=== PATIENT | female | born 1990 | race Caucasian/White ===

== ENCOUNTER → 2019-05-23 | Outpatient (REF) | payer OTHER ==
[2019-05-23 15:48] LABS: CHLAMYDIA DNA AMPLIFICATION NEGATIVE (NEGATIVE); GC DNA AMPLIFICATION NEGATIVE (NEGATIVE)
== END ==
LOC: M LAB REF 13:24
PROVIDERS: ATTEND Advanced Practice Midwife
DX: Z11.3 Encounter for screening for infections with a predominantly sexual mode of transmission (principal)
CPT/HCPCS: 87491; 87591; G0123

== ENCOUNTER → 2019-06-26 | Outpatient (REF) | payer OTHER | LOC: M LAB REF 16:52 | PROVIDERS: ATTEND Physician Assistant | DX: R30.0 Dysuria (principal) ==

== ENCOUNTER → 2019-10-03 | Outpatient (REF) | payer OTHER | LOC: M LAB REF 16:09 | PROVIDERS: ATTEND Nurse Practitioner | DX: L08.9 Local infection of the skin and subcutaneous tissue, unspecified (principal) ==

== ENCOUNTER 2020-02-26 08:30 | Outpatient (CLI) | payer OTHER ==
[~2020-02-26] VITALS: Ht 175.3 cm; Wt 100.0 kg
[2020-02-26 08:46] VITALS: BP 131/60
[2020-02-26] MEDS ORDERED: FERRIC CARBOXYMALTOSE INJ 750 MG in NS 250 ML IV ONE (09:15)
[2020-02-26] MEDS ORDERED: MAXA10TA14 PO (09:19)
[2020-02-26] MEDS ORDERED: VITA250C5 PO (09:19)
[2020-02-26] MEDS ORDERED: MULT-90 PO (09:19)
[2020-02-26] MEDS ORDERED: BUPR150T3 PO (09:19)
[2020-02-26] MEDS ORDERED: VITA5000 PO (09:19)
[2020-02-26 10:55] VITALS: BP 134/83
== END 2020-02-26 10:55 | disposition home or self-care (01) ==
LOC: M INFU 08:30
PROVIDERS: ATTEND Physician Assistant
DX: D64.9 Anemia, unspecified (principal)
CPT/HCPCS: 96365; J1439

== ENCOUNTER 2020-03-04 12:26 | Outpatient (CLI) | payer OTHER ==
[~2020-03-04] VITALS: Ht 175.3 cm; Wt 100.0 kg
[~2020-03-04 12:26] MED LIST: BUPR150T3 PO; MAXA10TA14 PO; MULT-90 PO; VITA250C5 PO; VITA5000 PO
[2020-03-04] MEDS ORDERED: FERRIC CARBOXYMALTOSE INJ 750 MG in NS 250 ML IV ONE (12:45)
[2020-03-04 14:18] VITALS: BP 116/55
== END 2020-03-04 14:15 | disposition home or self-care (01) ==
LOC: M INFU 12:26
PROVIDERS: ATTEND Physician Assistant
DX: D64.9 Anemia, unspecified (principal)
CPT/HCPCS: 96365; J1439

== ENCOUNTER 2020-07-13 18:53 | Emergency (ER) | payer OTHER ==
[~2020-07-13] VITALS: Ht 175.3 cm; Wt 105.8 kg
[2020-07-13 21:02] LABS: BASO # 0.1 10^3/uL (0.0-0.2); BASO % 0.5 % (0.0-1.0); EOS # 0.2 10^3/uL (0.0-0.5); EOS % 1.5 % (0.0-3.0); HEMATOCRIT 38.7 % (36.0-47.0); HEMOGLOBIN 12.1 g/dl (12.0-15.5); LYMPH # 2.7 10^3/uL (1.5-5.0); LYMPH % 24.6 % (24.0-44.0); MEAN CORPUSCULAR HGB CONC 31.3 g/dl (32.0-36.5); MEAN CORPUSCULAR VOLUME 83.2 fl (80.0-96.0); MONO # 0.5 10^3/uL (0.0-0.8); MONO % 4.1 % (0.0-5.0); NEUTROPHILS # 7.7 10^3/uL (1.5-8.5); NEUTROPHILS % 68.9 % (36.0-66.0); PLATELET COUNT, AUTOMATED 351 10^3/uL (150-450); RED BLOOD COUNT 4.65 10^6/uL (4.00-5.40); WHITE BLOOD COUNT 11.1 10^3/uL (4.0-10.0)
[2020-07-13 21:16] LABS: INR 1.07; PROTHROMBIN TIME 14.1 SECONDS (12.5-14.3)
[2020-07-13 21:17] LABS: PARTIAL THROMBOPLASTIN TIME 30.6 SECONDS (24.2-38.5)
[2020-07-13 21:19] LABS: HCG, SERUM QUALITATIVE NEGATIVE (NEGATIVE)
[2020-07-13 21:59] LABS: ALBUMIN 4.4 GM/DL (3.2-5.2); ALT/SGPT 22 U/L (12-78); BILIRUBIN,DIRECT < 0.1 MG/DL (0.0-0.2); BILIRUBIN,TOTAL 0.5 MG/DL (0.2-1.0); BLOOD UREA NITROGEN 17 MG/DL (7-18); CALCIUM LEVEL 9.7 MG/DL (8.5-10.1); CARBON DIOXIDE LEVEL 26 MEQ/L (21-32); CHLORIDE LEVEL 106 MEQ/L (98-107); CK-MB VALUE MASS < 1.0 NG/ML (<3.6); CPK CREATINE PHOSPHOKINASE 108 U/L (26-192); CREATININE FOR GFR 1.22 MG/DL (0.55-1.30); GLOMERULAR FILTRATION RATE 55.1 (>60); GLUCOSE, FASTING 99 MG/DL (70-100); LIPASE 98 U/L (73-393); MB/CK RELATIVE INDEX 0.93 (< OR =4); POTASSIUM SERUM 4.2 MEQ/L (3.5-5.1); SODIUM LEVEL 140 MEQ/L (136-145); TROPONIN I < 0.02 NG/ML (< 0.10)
[2020-07-13] MEDS ORDERED: ISOVUE-370 76% 100ML VIAL As Ordered ONE (22:12)
--- NOTE | 2020-07-13 22:42 | REPVR ---
PROCEDURE INFORMATION: Exam: CT Angiography Chest With Contrast Exam date and time: 07/13/2020 10:30 PM Age: 29 years old Clinical indication: Chest pain; Additional info: Pleuritic chest pain TECHNIQUE: Imaging protocol: Computed tomographic angiography of the chest with intravenous contrast. 3D rendering (Not supervised by radiologist): MIP and/or 3D reconstructed images were created by the technologist. Radiation optimization: All CT scans at this facility use at least one of these dose optimization techniques: automated exposure control; mA and/or kV adjustment per patient size (includes targeted exams where dose is matched to clinical indication); or iterative reconstruction. Contrast material: ISO 370; Contrast volume: 75 ml; Contrast route: INTRAVENOUS (IV); COMPARISON: No relevant prior studies available. FINDINGS: Pulmonary arteries: No evidence of pulmonary artery emboli. Aorta: No evidence of thoracic aortic aneurysm or dissection. Lungs: Unremarkable. No consolidation. No masses. Pleural space: Unremarkable. No pneumothorax. No pleural effusion. Heart: Unremarkable. No cardiomegaly. No pericardial effusion. Mediastinal space: There is a small hiatal hernia. Lymph nodes: Unremarkable. No enlarged lymph nodes. Bones/joints: Unremarkable. No acute fracture. Soft tissues: Unremarkable. IMPRESSION: 1. No pulmonary artery emboli. 2. Small hiatal hernia. 3. No acute findings. Electronically signed by: Alfie Malhotra On 07/13/2020 22:41:28 PM
[2020-07-13 23:00] VITALS: BP 119/72
--- NOTE | 2020-07-14 10:20 | ECGEPIP ---
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
== END 2020-07-13 23:34 | disposition home or self-care (01) ==
LOC: M ED 18:53
DX: R07.9 Chest pain, unspecified (principal); R94.31 Abnormal electrocardiogram [ECG] [EKG]; K44.9 Diaphragmatic hernia without obstruction or gangrene; Z88.2 Allergy status to sulfonamides; Z88.6 Allergy status to analgesic agent; Z88.8 Allergy status to other drugs, medicaments and biological substances
CPT/HCPCS: 36415; 71275; 80048; 80076; 82550; 82553; 83690; 84439; 84443; 84484; 84703; 85025; 85610; 85730; 93005; 93041; 94760; 99285; Q9967

== ENCOUNTER → 2020-10-02 | Outpatient (CLI) | payer OTHER ==
[~2020-10-02] MED LIST changes: -BUPR150T3 PO; +BUPR150T4 PO
--- NOTE | 2020-10-02 10:25 | REP ---
INDICATION: CERVICALGIA. COMPARISON: None. TECHNIQUE: AP, lateral, flexion/extension, bilateral oblique, and open-mouth views of the cervical spine. FINDINGS: Alignment and lordosis maintained. Vertebral bodies intact. No acute fracture/compression injury or subluxation. No significant degenerative changes. Oblique views demonstrate patent neural foramen. Open mouth view demonstrates normal C1-C2 articulation and odontoid process. Surrounding soft tissues unremarkable. IMPRESSION: Normal cervical spine radiographs. <Electronically signed by Alonso Aguilera > 10/02/20 1027
== END ==
LOC: M RAD 09:52
PROVIDERS: ATTEND Physician Assistant
DX: M54.2 Cervicalgia (principal)

== ENCOUNTER → 2020-11-19 | Outpatient (CLI) | payer OTHER ==
[~2020-11-19] MED LIST changes: +BUPR150T12 PO; -BUPR150T4 PO
== END ==
LOC: M RAD 15:12
PROVIDERS: ATTEND Physician Assistant
DX: R10.2 Pelvic and perineal pain (principal); Z53.9 Procedure and treatment not carried out, unspecified reason

== ENCOUNTER → 2020-12-09 | Outpatient (REF) | payer OTHER | LOC: M LAB REF 16:44 | PROVIDERS: ATTEND Physician Assistant | DX: N39.0 Urinary tract infection, site not specified (principal) ==

== ENCOUNTER → 2020-12-17 | Outpatient (CLI) | payer OTHER ==
--- NOTE | 2020-12-17 14:12 | REP ---
INDICATION: PELVIC AND PERINEAL PAIN COMPARISON: None. TECHNIQUE: Transabdominal pelvic ultrasound followed by transvaginal examination for better evaluation of the endometrium and adnexa with color Doppler evaluation of the ovaries. FINDINGS: Bladder is unremarkable and measures 10.3 x 7.8 x 9.8 cm. Normal anteverted uterus measures 8.7 x 3.9 x 4.0 cm. The endometrial complex measures 7.3 mm thickness. No discrete uterine or endometrial abnormalities are appreciated. Bilateral ovaries are normal in appearance and vascularity without evidence for torsion. Right ovary measures 3.8 x 1.8 x 2.5 cm; R I = 0.75. Left ovary measures 2.8 x 1.6 x 2.0 cm; R I = 0.58. No pelvic fluid or adnexal mass lesion. IMPRESSION: Normal pelvic ultrasound. <Electronically signed by Alonso Aguilera > 12/17/20 0816
== END ==
LOC: M RAD 13:19
PROVIDERS: ATTEND Physician Assistant
DX: R10.2 Pelvic and perineal pain (principal)

== ENCOUNTER 2020-12-21 16:04 | Emergency (ER) | payer OTHER ==
[~2020-12-21] VITALS: Ht 175.3 cm; Wt 104.3 kg
[2020-12-21] MEDS ORDERED: TIZA2CAP (16:21)
[2020-12-21] MEDS ORDERED: LIDOCAINE 5% (LIDODERM) PATCH TD ONE (16:45)
[2020-12-21] MEDS ORDERED: methocarbamoL 750 MG TAB PO ONE (16:45)
[2020-12-21 17:15] LABS: BASO # 0.1 10^3/uL (0.0-0.2); BASO % 0.6 % (0.0-1.0); EOS # 0.2 10^3/uL (0.0-0.5); EOS % 2.4 % (0.0-3.0); HEMATOCRIT 41.4 % (36.0-47.0); HEMOGLOBIN 13.1 g/dl (12.0-15.5); LYMPH # 3.2 10^3/uL (1.5-5.0); MEAN CORPUSCULAR HEMOGLOBIN 26.6 pg (27.0-33.0); MEAN CORPUSCULAR HGB CONC 31.6 g/dl (32.0-36.5); MONO # 0.6 10^3/uL (0.0-0.8); MONO % 6.4 % (2.0-8.0); NEUTROPHILS # 5.6 10^3/uL (1.5-8.5); NEUTROPHILS % 57.3 % (36.0-66.0); PLATELET COUNT, AUTOMATED 320 10^3/uL (150-450); RED BLOOD COUNT 4.93 10^6/uL (4.00-5.40); WHITE BLOOD COUNT 9.7 10^3/uL (4.0-10.0)
[2020-12-21 17:40] LABS: ALBUMIN 3.9 GM/DL (3.2-5.2); ALT/SGPT 23 U/L (12-78); BILIRUBIN,DIRECT < 0.1 MG/DL (0.0-0.2); BILIRUBIN,TOTAL 0.3 MG/DL (0.2-1.0); LIPASE 86 U/L (73-393); TOTAL PROTEIN 8.5 GM/DL (6.4-8.2)
--- NOTE | 2020-12-21 19:51 | REPVR ---
PROCEDURE INFORMATION: Exam: US Nonobstetric Pelvis; Complete Exam date and time: 12/21/2020 7:05 PM Age: 30 years old Clinical indication: Abdominal pain; Other: Lt flank; Additional info: L flank pain, recent US nl but didn't have pain TECHNIQUE: Imaging protocol: Transabdominal pelvic nonobstetric ultrasound. Complete exam. Real time ultrasound with image documentation. COMPARISON: US PELVIC NON-OB COMPLETE 12/17/2020 1:37 PM FINDINGS: Uterus/cervix: The endometrium measures 6 mm in thickness and uniformly echogenic. The uterus is normal in size measuring approximately 8.7 cm in length by 3.7 cm in AP dimension by 4.4 cm in transverse dimension. Right adnexa: The right ovary measures 2.8 cm in length by 1.9 cm in thickness and there is vascular flow with no evidence of torsion. Left adnexa: The left ovary measures 3.4 cm in length by 2 cm in thickness and there is vascular flow with no evidence of torsion. There is a 1.2 cm cyst of the left ovary most consistent with a follicular/functional cyst. Intraperitoneal space: There is a very small amount of free fluid in the pelvis Urinary bladder: Normal appearing urinary bladder. IMPRESSION: 1.2 cm cyst of the left ovary that is new and probably a follicular cyst. Electronically signed by: Julio Porras On 12/21/2020 19:50:52 PM
--- NOTE | 2020-12-21 19:55 | REPVR ---
PROCEDURE INFORMATION: Exam: US Retroperitoneal Limited, Kidneys Exam date and time: 12/21/2020 7:05 PM Age: 30 years old Clinical indication: Abdominal pain; Flank; Left; Additional info: L flank pain, recent US nl but didn't have pain TECHNIQUE: Imaging protocol: Real-time ultrasound of the retroperitoneum with image documentation. Examination was focused on the kidneys. COMPARISON: No relevant prior studies available. FINDINGS: Right kidney: The right kidney measures 11.9 cm in length by 4.2 cm in thickness with no evidence of hydronephrosis. Normal urinary bladder. Left kidney: The left kidney measures 12.5 cm in length by 5 cm in AP dimension with no evidence of hydronephrosis. Normal appearing urinary bladder. IMPRESSION: Normal appearing renal ultrasound. Electronically signed by: Julio Porras On 12/21/2020 19:55:15 PM
[2020-12-21 20:09] VITALS: BP 120/71
[2020-12-21] MEDS ORDERED: **NOTE PATIENT COMMENT** MISC XX SCH (21:00)
== END 2020-12-21 20:12 | disposition home or self-care (01) ==
LOC: M ED 16:04
DX: N83.202 Unspecified ovarian cyst, left side (principal); Z88.1 Allergy status to other antibiotic agents; Z88.2 Allergy status to sulfonamides; Z88.6 Allergy status to analgesic agent; Z88.8 Allergy status to other drugs, medicaments and biological substances

== ENCOUNTER → 2021-02-17 | Outpatient (CLI) | payer OTHER ==
[~2021-02-17] MED LIST changes: +TIZA2CAP
--- NOTE | 2021-02-17 18:41 | REP ---
INDICATION: LESS THAN 8 WEEKS GESTATION OF . COMPARISON: None. TECHNIQUE: Real-time sonographic evaluation of gravid uterus performed. Transabdominal and endovaginal technique utilized. FINDINGS: There is a single living intrauterine gestation. The estimated gestational age based on a crown-rump length of 20 mm is 8 weeks 4 days, EDC 09/25/2021. the heart rate is 171 beats per minute. There is no subchorionic hemorrhage. Cystic structure left ovary probably represents a corpus luteum, approximately 1.9 cm in diameter. Blood flow is seen in the ovaries with duplex Doppler evaluation, with no torsion. Right ovary appears unremarkable. IMPRESSION: Viable intrauterine gestation as above. <Electronically signed by Harlan Daniels > 02/17/21 [id number]
== END ==
LOC: M RAD 16:12
PROVIDERS: ATTEND Physician Assistant
DX: Z3A.01 Less than 8 weeks gestation of pregnancy (principal)

== ENCOUNTER → 2021-03-17 | Outpatient (CLI) | payer OTHER ==
[2021-03-17 16:40] LABS: HEMATOCRIT 35.4 % (36.0-47.0); HEMOGLOBIN 11.1 g/dl (12.0-15.5); MEAN CORPUSCULAR HEMOGLOBIN 26.1 pg (27.0-33.0); MEAN CORPUSCULAR HGB CONC 31.4 g/dl (32.0-36.5); MEAN CORPUSCULAR VOLUME 83.3 fl (80.0-96.0); PLATELET COUNT, AUTOMATED 293 10^3/uL (150-450); RED BLOOD COUNT 4.25 10^6/uL (4.00-5.40); WHITE BLOOD COUNT 7.6 10^3/uL (4.0-10.0)
[2021-03-17 17:04] LABS: GLUCOSE CHALLENGE TEST 1 HOUR 93 MG/DL (LESS THAN 140)
[2021-03-17 18:01] LABS: HIV 1&2 SCREEN CENTAUR NEGATIVE (NEGATIVE)
[2021-03-17 18:31] LABS: GC DNA AMPLIFICATION NEGATIVE (NEGATIVE)
== END ==
LOC: M PLALAB 10:55
PROVIDERS: ATTEND Obstetrics & Gynecology
DX: Z34.91 Encounter for supervision of normal pregnancy, unspecified, first trimester (principal)

== ENCOUNTER → 2021-04-23 | Outpatient (REF) | payer OTHER | LOC: M SFHCWAGY 18:05 | PROVIDERS: ATTEND Obstetrics & Gynecology | DX: Z34.92 Encounter for supervision of normal pregnancy, unspecified, second trimester (principal) | CPT/HCPCS: 87086; G0463 ==

== ENCOUNTER → 2021-05-12 | Outpatient (CLI) | payer OTHER ==
--- NOTE | 2021-05-12 11:31 | REP ---
INDICATION: ANATOMY COMPARISON: None. TECHNIQUE: Transabdominal obstetrical ultrasound with color Doppler evaluation. FINDINGS: Examination demonstrates a single live intrauterine in variable presentation. motion is identified by technologist. Placenta is noted posterior and grade 1 without evidence for placenta previa or abruption. Amniotic fluid volume is normal. Cervix measures 5.3 cm in length and appears closed.. Selected gestational age: 20 weeks 6 days with JOSÉ MIGUEL 09/23/2021. Gestational age by current measurements 21 weeks 1 day with JOSÉ MIGUEL 09/21/2021. FHR equals 144 beats per minute. BPD: 4.9 cm at 20 weeks 5 days HC: 19.0 cm at 21 weeks 2 days AC: 15.8 cm at 20 weeks 6 days FL: 3.6 cm at 21 weeks 2 days HL: 3.4 cm at 21 weeks 4 days HC/AC: 1.20 Estimated weight 397 grams (54thpercentile). Anatomical assessment demonstrates normal structures including cranium, choroid plexus, cavum, cerebellum/posterior fossa, facial features, lungs, four-chamber heart/ventricular outflow tracts, diaphragm, stomach, cord insertion/three-vessel cord, kidneys/bladder, spine, and extremities. IMPRESSION: Single live intrauterine in variable presentation demonstrating appropriate interval growth. Anatomical assessment is complete and normal. <Electronically signed by Alonso Aguilera > 05/12/21 [id number]
== END ==
LOC: M WHC 09:33
PROVIDERS: ATTEND Obstetrics & Gynecology
DX: Z34.92 Encounter for supervision of normal pregnancy, unspecified, second trimester (principal); Z3A.21 21 weeks gestation of pregnancy

== ENCOUNTER → 2021-05-22 | Outpatient (REF) | payer OTHER | LOC: M SFHCWAGY 12:47 | PROVIDERS: ATTEND Advanced Practice Midwife | DX: O09.292 Supervision of pregnancy with other poor reproductive or obstetric history, second trimester (principal) | CPT/HCPCS: 87086; G0463 ==

== ENCOUNTER → 2021-05-29 | Outpatient (REF) | payer OTHER | LOC: M LAB REF 16:58 | PROVIDERS: ATTEND Advanced Practice Midwife | DX: R35.0 Frequency of micturition (principal) ==

== ENCOUNTER → 2021-06-19 | Outpatient (CLI) | payer OTHER ==
[2021-06-19 13:20] LABS: HEMATOCRIT 32.2 % (36.0-47.0); MEAN CORPUSCULAR HEMOGLOBIN 25.3 pg (27.0-33.0); MEAN CORPUSCULAR HGB CONC 31.1 g/dl (32.0-36.5); MEAN CORPUSCULAR VOLUME 81.5 fl (80.0-96.0); PLATELET COUNT, AUTOMATED 282 10^3/uL (150-450); RED BLOOD COUNT 3.95 10^6/uL (4.00-5.40); WHITE BLOOD COUNT 12.1 10^3/uL (4.0-10.0)
== END ==
LOC: M PLALAB 08:39
PROVIDERS: ATTEND Advanced Practice Midwife
DX: O09.292 Supervision of pregnancy with other poor reproductive or obstetric history, second trimester (principal)
CPT/HCPCS: 36415; 82950; 85027; 86850; 86900; 86901; 87086; 87210; G0463

== ENCOUNTER → 2021-07-31 | Outpatient (CLI) | payer OTHER ==
--- NOTE | 2021-08-01 17:02 | REP ---
INDICATION: GROWTH COMPARISON: 05/12/2021 TECHNIQUE: Transabdominal obstetrical ultrasound with color Doppler evaluation. FINDINGS: Examination demonstrates a single live intrauterine in cephalic presentation. motion is identified by technologist. Placenta is noted posterior and grade 1 without evidence for placenta previa or abruption. Amniotic fluid volume is normal. Cervix appears closed.. Selected gestational age: 32 weeks 2 days with JOSÉ MIGUEL 09/23/2021. Gestational age by current measurements 33 weeks 3 days with JOSÉ MIGUEL 09/15/2021. FHR equals 165 beats per minute. BPD: 8.1 cm; 32 weeks 5 days; 56% HC: 30.2 cm; 33 weeks 4 days; 60% AC: 30.2 cm; 34 weeks 1 day; 78% FL: 6.4 cm; 33 weeks 1 day; 63% HL: 5.8 cm; 33 weeks 2 days; 67% HC/AC: 1.00 Estimated weight 2247 grams (81stpercentile). AMIRA: 14.2 cm Umbilical artery SD ratio: 2.35 (1.83-3.84) IMPRESSION: Single live intrauterine in cephalic presentation demonstrating appropriate estimated weight and growth. <Electronically signed by Alonso Aguilera > 08/01/21 [id number]
== END ==
LOC: M WHC 14:02
PROVIDERS: ATTEND Advanced Practice Midwife
DX: O24.415 Gestational diabetes mellitus in pregnancy, controlled by oral hypoglycemic drugs (principal); Z3A.32 32 weeks gestation of pregnancy

== ENCOUNTER → 2021-08-18 | Outpatient (CLI) | payer OTHER ==
[2021-08-18 18:00] LABS: HEMATOCRIT 37.4 % (36.0-47.0); HEMOGLOBIN 11.4 g/dl (12.0-15.5); MEAN CORPUSCULAR HEMOGLOBIN 23.9 pg (27.0-33.0); MEAN CORPUSCULAR HGB CONC 30.5 g/dl (32.0-36.5); MEAN CORPUSCULAR VOLUME 78.4 fl (80.0-96.0); PLATELET COUNT, AUTOMATED 292 10^3/uL (150-450); RED BLOOD COUNT 4.77 10^6/uL (4.00-5.40); WHITE BLOOD COUNT 10.5 10^3/uL (4.0-10.0)
[2021-08-18 18:26] LABS: ALBUMIN 2.9 GM/DL (3.2-5.2); ALT/SGPT 19 U/L (12-78); AMYLASE 27 U/L (25-115); BILIRUBIN,TOTAL 0.4 MG/DL (0.2-1.0); BLOOD UREA NITROGEN 9 MG/DL (7-18); CALCIUM LEVEL 9.5 MG/DL (8.5-10.1); CARBON DIOXIDE LEVEL 22 MEQ/L (21-32); CHLORIDE LEVEL 109 MEQ/L (98-107); CREATININE FOR GFR 0.55 MG/DL (0.55-1.30); GLOMERULAR FILTRATION RATE > 60.0 (>60); GLUCOSE, FASTING 90 MG/DL (70-100); LIPASE 66 U/L (73-393); POTASSIUM SERUM 4.7 MEQ/L (3.5-5.1); SODIUM LEVEL 136 MEQ/L (136-145); TOTAL PROTEIN 7.2 GM/DL (6.4-8.2)
== END ==
LOC: M PLALAB 14:56
PROVIDERS: ATTEND Advanced Practice Midwife
DX: O26.893 Other specified pregnancy related conditions, third trimester (principal)

== ENCOUNTER → 2021-08-27 | Outpatient (CLI) | payer OTHER ==
--- NOTE | 2021-08-27 11:38 | REP ---
INDICATION: F/U ANATOMY COMPARISON: 07/31/2021 TECHNIQUE: Transabdominal obstetrical ultrasound with color Doppler evaluation. FINDINGS: Examination demonstrates a single live intrauterine in cephalic presentation. motion is identified by technologist. Placenta is noted posterior and grade 2 without evidence for placenta previa or abruption. Amniotic fluid volume is normal. Cervix measures 3.4 cm in length and appears closed.. Selected gestational age: 36 weeks 1 day with JOSÉ MIGUEL 09/23/2021. Gestational age by current measurements 36 weeks 5 days with JOSÉ MIGUEL 09/19/2021. FHR equals 130 beats per minute. BPD: 9.2 cm; 37 weeks 3 days; 67% HC: 33.2 cm; 37 weeks 6 days; 79% AC: 33.4 cm; 37 weeks 2 days; 67% FL: 6.8 cm; 35 weeks 0 days; 33% HL: 6.2 cm; 36 weeks 1 day; 50% HC/AC: 1.00 Estimated weight 3040 grams (70thpercentile). AMIRA: 20.2 cm (7.7-24.8) Umbilical artery SD ratio: 2.58 (1.63-3.50) IMPRESSION: Single live advanced gestation in cephalic presentation demonstrating appropriate estimated weight/growth. <Electronically signed by Alonso Aguilera > 08/27/21 [id number]
== END ==
LOC: M WHC 09:53
PROVIDERS: ATTEND Specialist
DX: Z34.82 Encounter for supervision of other normal pregnancy, second trimester (principal); Z3A.36 36 weeks gestation of pregnancy

== ENCOUNTER → 2021-09-01 | Outpatient (CLI) | payer OTHER ==
--- NOTE | 2021-09-01 09:15 | REP ---
INDICATION: RUQ ABD PAIN W/ PREG COMPARISON: None. TECHNIQUE: Real time ha scale ultrasound examination using curved array transducer. FINDINGS: Liver is normal in contour, size, and echogenicity without focal hepatic lesions identified. Pancreas is incompletely evaluated due to interposed bowel gas. The gallbladder demonstrates layering sludge without wall thickening, or pericholecystic fluid. No biliary ductal dilatation is appreciated and the common bile duct measures 3.4 mm diameter. Right kidney is normal in reniform shape without hydronephrosis and measures 12.6 x 6.4 x 5.5 cm. No ascites in the visualized right upper quadrant. IMPRESSION: Gallbladder sludge. <Electronically signed by Alonso Aguilera > 09/01/21 0919
== END ==
LOC: M WHC 07:37
PROVIDERS: ATTEND Advanced Practice Midwife
DX: O26.893 Other specified pregnancy related conditions, third trimester (principal); R10.11 Right upper quadrant pain

== ENCOUNTER 2021-09-13 11:16 | Inpatient (IN) | payer OTHER ==
[~2021-09-13] VITALS: Ht 172.7 cm; Wt 110.7 kg
[2021-09-13 11:55] VITALS: BP 128/70
[2021-09-13] MEDS ORDERED: OXYTOCIN INJ 10 UNITS/ML VIAL (J2590) IV PRN (12:15)
[2021-09-13] MEDS ORDERED: OXYTOCIN DRIP 30 UNITS in IV 1 EA IV PRN ×6 (12:15)
[2021-09-13] MEDS ORDERED: LIDOCAINE 1% MDV 20ML VIAL INFIL PRN (12:15)
[2021-09-13] MEDS ORDERED: METHYLERGONOVINE MALEATE 0.2 MG/ML VIAL (J2210) IM PRN (12:15)
[2021-09-13] MEDS ORDERED: OXYTOCIN INJ 10 UNITS/ML VIAL (J2590) IM PRN (12:15)
[2021-09-13] MEDS ORDERED: TRANEXAMIC ACID INJection 1,000 MG in NS 100 ML IV PRN (12:15)
[2021-09-13] MEDS ORDERED: CARBOPROST TROMETHAMINE 250 MCG/ML AMP IM PRN (12:15)
[2021-09-13 13:05] VITALS: BP 127/61
[2021-09-13 13:07] LABS: HEMATOCRIT 36.7 % (36.0-47.0); HEMOGLOBIN 11.3 g/dl (12.0-15.5); MEAN CORPUSCULAR HEMOGLOBIN 23.4 pg (27.0-33.0); MEAN CORPUSCULAR HGB CONC 30.8 g/dl (32.0-36.5); PLATELET COUNT, AUTOMATED 270 10^3/uL (150-450); RED BLOOD COUNT 4.83 10^6/uL (4.00-5.40)
[2021-09-13] MEDS ORDERED: PENICILLIN G POTASSIUM IV 5 MU in D5W MINI-BAG PLUS 100 ML IV STA (13:12)
[2021-09-13] MEDS ORDERED: INSULIN IV RATE CHANGE DOCUMENTATION ML/HR XX SCH (13:15)
[2021-09-13] MEDS ORDERED: INSULIN REGULAR IN 0.9 % NACL 100 UNIT in IV 1 EA IV SCH ×2 (13:15)
[2021-09-13] MEDS ORDERED: PRENTAB9 PO (13:25)
[2021-09-13] MEDS ORDERED: VITATAB74 PO (13:25)
[2021-09-13] MEDS ORDERED: ZINC1TAB2 PO (13:25)
[2021-09-13 13:32] LABS: GLUCOSE,RANDOM 96 MG/DL (LESS THAN 200)
[2021-09-13] MEDS: NS 1,000 ML IV SCH ×2 (13:42→18:20)
[2021-09-13] MEDS: miSOPROStol 50MCG 1/2 TABLET SL SCH ×3 (13:44→22:01)
[2021-09-13 14:06] VITALS: BP 120/59
[2021-09-13 15:37] VITALS: BP 116/59
[2021-09-13 16:35] VITALS: BP 113/66
[2021-09-13] MEDS: PENICILLIN G POTASSIUM IV 2.5 MU in IV 1 EA IV SCH ×2 (17:52→22:01)
[2021-09-13 22:01] VITALS: BP 136/78
[2021-09-14] VITALS (49 sets, daily range): BP systolic 107–146; BP diastolic 51–95
[2021-09-14] MEDS: PENICILLIN G POTASSIUM IV 2.5 MU in IV 1 EA IV SCH ×5 (02:02→17:57)
[2021-09-14] MEDS: NS 1,000 ML IV SCH ×3 (06:00→17:33)
[2021-09-14] MEDS ORDERED: LR 1,000 ML IV SCH (08:00)
[2021-09-14] MEDS ORDERED: OXYTOCIN DRIP 30 UNITS in IV 1 EA IV SCH (08:00)
[2021-09-14] MEDS ORDERED: FENTANYL 2MCG/ML ROPIVACAINE 0.2% IN 0.9% NACL 100ML IVBAG As Ordered ONE (16:57)
[2021-09-14] MEDS ORDERED: LACTATED RINGER'S 1000 ML IV PRN (17:00)
[2021-09-14] MEDS ORDERED: ePHEDrine SULFATE 25 MG/5 ML(5MG/ML) SYRINGE IV PRN (17:00)
[2021-09-14] MEDS ORDERED: REFRIGERATOR IV KEYS XX PRN (17:00)
[2021-09-14] MEDS ORDERED: diphenhydrAMINE 50MG/ML VIAL (J1200) IV PRN (17:00)
[2021-09-14] MEDS ORDERED: FENTANYL/ROPIVACAINE/NACL BAG 100 ML EPIDURAL SCH (17:00)
[2021-09-14] MEDS ORDERED: EPIDURAL COMMENT XX SCH (17:00)
[2021-09-14] MEDS ORDERED: EPIDURAL/PCA KEYS XX PRN (17:00)
[2021-09-14] MEDS ORDERED: ONDANSETRON 4MG/2ML VIAL IV PRN (17:00)
[2021-09-14] MEDS ORDERED: NALOXONE INJ 0.4MG/1ML VIAL (J2310 PER 1MG) IV PRN (17:00)
[2021-09-14] MEDS ORDERED: ANUSOL HC CREAM 30GM TOP PRN (22:00)
[2021-09-14] MEDS ORDERED: DIBUCAINE 1% OINTMENT 30GM TOP PRN (22:00)
[2021-09-14] MEDS ORDERED: ACETAMINOPHEN TAB 650MG DOSE (2X325MG) PO PRN (22:00)
[2021-09-14] MEDS ORDERED: METHYLERGONOVINE MALEATE 0.2 MG/ML VIAL (J2210) IM PRN (22:00)
[2021-09-14] MEDS ORDERED: METHYLERGONOVINE MALEATE 0.2 MG TAB PO PRN (22:00)
[2021-09-14] MEDS ORDERED: DOCUSATE SODIUM 100MG CAPSULE PO PRN (22:00)
[2021-09-14] MEDS ORDERED: RHOGAM 300 MCG (1500 IU) INJ (J2790) IM SCH (22:00)
[2021-09-14] MEDS ORDERED: MEASLES,MUMPS,RUBELLA VACCINE INJ (MMR-II) (90707) SC SCH (22:00)
[2021-09-15] MEDS: ACETAMINOPHEN 500 MG TAB PO PRN ×3 (04:54→22:35)
[2021-09-15 06:22] VITALS: BP 118/60
[2021-09-15] MEDS: PRENATAL VITAMINS CHEWABLE TABLET PO SCH (09:25)
[2021-09-15 18:02] VITALS: BP 118/56
[2021-09-16 05:55] VITALS: BP 108/54
[2021-09-16] MEDS: PRENATAL VITAMINS CHEWABLE TABLET PO SCH (08:42)
== END 2021-09-16 12:45 | disposition home or self-care (01) | DRG 807 ==
LOC: M LDI 11:16 → M OBS 09-14 23:22
PROVIDERS: ADMIT Obstetrics & Gynecology; ATTEND Obstetrics & Gynecology
PROC: 3E033VJ Introduction of Other Hormone into Peripheral Vein, Percutaneous Approach (ICD-10-PCS; 2021-09-13)
PROC: 10E0XZZ Delivery of Products of Conception, External Approach (ICD-10-PCS; principal; 2021-09-14)
DX: O24.425 Gestational diabetes mellitus in childbirth, controlled by oral hypoglycemic drugs (principal); Z37.0 Single live birth; Z3A.38 38 weeks gestation of pregnancy; O69.82X0 Labor and delivery complicated by other cord entanglement, without compression, not applicable or unspecified

== ENCOUNTER → 2021-10-14 | Outpatient (REF) | payer OTHER ==
[~2021-10-14] MED LIST changes: +PRENTAB9 PO; +VITATAB74 PO; +ZINC1TAB2 PO
== END ==
LOC: M SFHCWAGY 09:46
PROVIDERS: ATTEND Advanced Practice Midwife
DX: N39.41 Urge incontinence (principal)

== ENCOUNTER → 2021-10-23 | Outpatient (CLI) | payer OTHER | LOC: M RAD 13:55 | PROVIDERS: ATTEND Family Medicine | DX: M25.512 Pain in left shoulder (principal) ==